=== PATIENT | female | born 1970 | race Asian ===

== ENCOUNTER 2016-11-06 09:31 | Emergency (ER) | payer OTHER ==
[~2016-11-06] VITALS: Ht 177.8 cm; Wt 113.4 kg
[2016-11-06] MEDS ORDERED: CARV3.12 PO (09:47)
[2016-11-06] MEDS ORDERED: ZANTAC300 MG PO (09:47)
[2016-11-06] MEDS ORDERED: LEXAPRO10 MG OR (09:48)
[2016-11-06] MEDS ORDERED: SIMV20TA2 PO (09:48)
[2016-11-06 11:00] LABS: PLATELET COUNT 207 K/uL (152-353)
[2016-11-06 11:11] LABS: POTASSIUM 3.9 mmol/L (3.6-5.2); SODIUM 136 mmol/L (136-145)
== END 2016-11-06 12:18 | disposition home or self-care (01) ==
LOC: ED 09:31
PROVIDERS: Specialist
DX: E86.9 Volume depletion, unspecified (principal); T37.8X5A Adverse effect of other specified systemic anti-infectives and antiparasitics, initial encounter
CPT/HCPCS: 36415; 80048; 85027; 96360; 96361; 96374; 96375; 99283; 99284; J3490

== ENCOUNTER 2018-04-16 12:55 | Emergency (ER) | payer BC ==
[~2018-04-16] VITALS: Ht 172.7 cm; Wt 106.6 kg
[~2018-04-16 12:55] MED LIST: CARV3.12 PO; LEXAPRO10 MG OR; SIMV20TA2 PO; ZANTAC300 MG PO
[2018-04-16 13:00] VITALS: TEMP 97.5
[2018-04-16 13:35] LABS: PLATELET COUNT 239 K/uL (152-353)
[2018-04-16 13:47] LABS: POTASSIUM 4.1 mmol/L (3.6-5.2)
[2018-04-16 13:54] LABS: PARTIAL THROMBOPLASTIN TIME 26.1 SECONDS (24.5-33.6)
[2018-04-16 14:55] VITALS: BP 134/84
== END 2018-04-16 15:02 | disposition home or self-care (01) ==
LOC: ED 12:55
DX: R07.89 Other chest pain (principal)
CPT/HCPCS: 80053; 82550; 82553; 83880; 84484; 85027; 85610; 85730; 93005; 99283

== ENCOUNTER 2018-05-28 12:24 | Outpatient (CLI) | payer BC | END 2018-05-28 22:18 | disposition home or self-care (01) | LOC: RAD 12:24 | DX: M25.562 Pain in left knee (principal); M25.561 Pain in right knee ==

== ENCOUNTER 2018-06-15 08:28 | Outpatient (CLI) | payer BC ==
[2018-06-15 08:56] LABS: POTASSIUM 3.7 mmol/L (3.6-5.2)
== END 2018-06-15 21:08 | disposition home or self-care (01) ==
LOC: LABW 08:28
PROVIDERS: Nurse Practitioner Family
DX: E78.5 Hyperlipidemia, unspecified (principal); I10 Essential (primary) hypertension; E11.9 Type 2 diabetes mellitus without complications; M25.569 Pain in unspecified knee
CPT/HCPCS: 36415; 80053; 80061; 83036

== ENCOUNTER 2018-12-17 11:24 | Outpatient (CLI) | payer BC | END 2018-12-17 23:59 | disposition home or self-care (01) | LOC: RAD 11:24 | DX: R05 Cough (principal); J40 Bronchitis, not specified as acute or chronic ==

== ENCOUNTER 2019-01-09 08:55 | Outpatient (CLI) | payer BC | END 2019-01-09 19:08 | disposition home or self-care (01) | LOC: MAMMO 08:55 | DX: Z12.31 Encounter for screening mammogram for malignant neoplasm of breast (principal) ==

== ENCOUNTER 2019-08-18 08:58 | Outpatient (CLI) | payer OTHER ==
[2019-08-18 09:17] LABS: PLATELET COUNT 211 K/uL (152-353)
[2019-08-18 09:41] LABS: POTASSIUM 3.8 mmol/L (3.6-5.2)
== END 2019-08-18 19:29 | disposition home or self-care (01) ==
LOC: LABW 08:58
PROVIDERS: Nurse Practitioner Family
DX: E11.9 Type 2 diabetes mellitus without complications (principal); E78.5 Hyperlipidemia, unspecified; I10 Essential (primary) hypertension; K21.9 Gastro-esophageal reflux disease without esophagitis; R60.9 Edema, unspecified; M25.50 Pain in unspecified joint; F41.1 Generalized anxiety disorder
CPT/HCPCS: 36415; 80053; 80061; 83036; 84443; 85027

== ENCOUNTER 2019-09-02 10:50 | Emergency (ER) | payer OTHER ==
[~2019-09-02] VITALS: Ht 172.7 cm; Wt 120.2 kg
[2019-09-02 12:15] LABS: PLATELET COUNT 215 K/uL (152-353)
[2019-09-02 12:17] LABS: POTASSIUM 3.8 mmol/L (3.6-5.2); SODIUM 141 mmol/L (136-145)
[2019-09-02 13:01] VITALS: BP 136/87; TEMP 97.9
== END 2019-09-02 13:10 | disposition home or self-care (01) ==
LOC: ED 10:50
PROVIDERS: Emergency Medicine
DX: M54.12 Radiculopathy, cervical region (principal)
CPT/HCPCS: 80053; 82550; 82553; 84484; 85027; 93005; 99283

== ENCOUNTER 2019-11-22 08:30 | Outpatient (CLI) | payer OTHER ==
[2019-11-22 09:21] LABS: POTASSIUM 4.1 mmol/L (3.6-5.2)
[2019-11-22 09:46] LABS: PLATELET COUNT 199 K/uL (152-353)
== END 2019-11-22 19:19 | disposition home or self-care (01) ==
LOC: LABW 08:30
PROVIDERS: Nurse Practitioner Family
DX: N39.0 Urinary tract infection, site not specified (principal); E11.9 Type 2 diabetes mellitus without complications; I10 Essential (primary) hypertension; K21.9 Gastro-esophageal reflux disease without esophagitis; E78.5 Hyperlipidemia, unspecified
CPT/HCPCS: 36415; 80053; 80061; 83036; 84443; 85027

== ENCOUNTER 2020-01-07 10:23 | Emergency (ER) | payer OTHER ==
[~2020-01-07] VITALS: Ht 172.7 cm; Wt 112.0 kg
[2020-01-07 10:30] VITALS: TEMP 98.7
[2020-01-07 11:14] LABS: PLATELET COUNT 223 K/uL (152-353)
[2020-01-07 11:20] LABS: POTASSIUM 3.9 mmol/L (3.6-5.2); SODIUM 135 mmol/L (136-145)
[2020-01-07 14:30] VITALS: BP 98/59
== END 2020-01-07 14:30 | disposition home or self-care (01) ==
LOC: ED 10:23
PROVIDERS: Student in an Organized Health Care Education/Training Program
DX: E11.65 Type 2 diabetes mellitus with hyperglycemia (principal); Z79.84 Long term (current) use of oral hypoglycemic drugs; I44.5 Left posterior fascicular block; R94.31 Abnormal electrocardiogram [ECG] [EKG]
CPT/HCPCS: 80048; 81000; 81002; 81025; 82962; 83735; 84443; 84484; 85027; 93005; 96360; 96361; 96372; 99284; J1815

== ENCOUNTER 2020-01-16 10:36 | Outpatient (CLI) | payer OTHER | END 2020-01-16 19:09 | disposition home or self-care (01) | LOC: LABW 10:36 | DX: E11.9 Type 2 diabetes mellitus without complications (principal) | CPT/HCPCS: 36415; 83036 ==

== ENCOUNTER 2020-03-01 11:50 | Outpatient (CLI) | payer OTHER ==
[2020-03-01 12:21] LABS: PLATELET COUNT 251 K/uL (152-353)
== END 2020-03-01 19:26 | disposition home or self-care (01) ==
LOC: LABW 11:50
PROVIDERS: Nurse Practitioner Family
DX: Z11.59 Encounter for screening for other viral diseases (principal); E11.9 Type 2 diabetes mellitus without complications; I10 Essential (primary) hypertension; R51 Headache; R53.83 Other fatigue; R07.0 Pain in throat; R05 Cough; R42 Dizziness and giddiness
CPT/HCPCS: 36415; 80053; 84443; 85027

== ENCOUNTER 2021-05-05 12:28 | Outpatient (CLI) | payer OTHER | END 2021-05-05 23:20 | disposition home or self-care (01) | LOC: MAMMO 12:28 | PROVIDERS: ATTEND Internal Medicine | DX: Z12.31 Encounter for screening mammogram for malignant neoplasm of breast (principal) ==